=== PATIENT | female | born 1930 ===

== ENCOUNTER 2019-09-02 06:00 | Outpatient (CLI) | payer OTHER | END 2019-09-02 06:05 | disposition home or self-care (01) | LOC: LAB 06:00 → ADM 08:15 → CIR.AMB 09-06 08:15 → EDSTATUS 09-06 08:15 → CIR.AMB 09-06 17:00 | DX: Z01.810 Encounter for preprocedural cardiovascular examination (principal); Z01.812 Encounter for preprocedural laboratory examination; Z01.811 Encounter for preprocedural respiratory examination ==